=== PATIENT | male | born 1995 | race Caucasian/White ===

== ENCOUNTER 2017-08-16 19:13 | Emergency (ER) | payer OTHER ==
[2017-08-16] MEDS: PERCOCET 5MG/325MG TAB PO (19:48)
== END 2017-08-16 20:35 | disposition home or self-care (01) ==
LOC: M ED 19:13
DX: S93.401A Sprain of unspecified ligament of right ankle, initial encounter (principal); V18.0XXA Pedal cycle driver injured in noncollision transport accident in nontraffic accident, initial encounter; Y92.410 Unspecified street and highway as the place of occurrence of the external cause
CPT/HCPCS: 73610